=== PATIENT | male | born 1950 | race Caucasian/White ===

== ENCOUNTER 2018-12-15 17:19 | Inpatient (IN) | payer OTHER ==
[~2018-12-15] VITALS: Ht 182.9 cm; Wt 99.3 kg
[~2018-12-15 17:19] MED LIST: NOHOMEMEDICATIONS; PERCOCET 5-3251 EACH PO
[2018-12-15 17:21] VITALS: BP 168/96
[2018-12-15] MEDS ORDERED: PREDNISONE 10 M10 MG PO (17:25)
[2018-12-15] MEDS ORDERED: AMOXICILLIN 50500 MG PO (17:25)
[2018-12-15] MEDS ORDERED: BENICAR20 MG PO (17:25)
[2018-12-15] MEDS ORDERED: PREDNISONE 20 M20 MG PO (17:26)
[2018-12-15 18:07] LABS: HEMATOCRIT 45.8 % (42.0-52.0); HEMOGLOBIN 15.3 gm/dL (14.0-18.0); MCH 30.1 pg (26.0-34.0); MCHC 33.4 g/dL (28.0-37.0); MCV 90.1 fL (80.0-100.0); MPV 9.4 fl. (7.2-11.1); NUCLEATED RBCS 0 /100WBC; PLATELET COUNT* 167 thou/uL (150-400); RBC 5.08 mil/uL (4.50-6.00); WBC 9.5 thou/uL (4.0-11.0)
[2018-12-15 18:15] LABS: CALCIUM 9.1 mg/dL (8.5-10.1); CREATININE 1.2 mg/dL (0.6-1.3); POTASSIUM 3.9 mmol/L (3.5-5.1)
[2018-12-15 18:27] LABS: ALBUMIN 3.2 g/dL (3.4-5.0); CK-MB MASS 1.6 ng/mL (<0.5-3.6); TOTAL BILIRUBIN 0.5 mg/dL (<0.1-1.0); TOTAL PROTEIN 6.9 g/dL (6.4-8.2); TROPONIN-I LEVEL 0.09 ng/mL (<0.06)
[2018-12-15 18:41] LABS: ABSOLUTE EOSINOPHILS 0.1 thou/uL (0.0-0.7); ABSOLUTE LYMPHOCYTES 1.9 thou/uL (0.8-5.3); ABSOLUTE MONOCYTES 0.3 thou/uL (0.0-1.2); ABSOLUTE NEUTROPHILS 7.2 thou/uL (1.6-8.1); PLATELET ESTIMATE ADEQUATE
[2018-12-15 18:42] LABS: APTT 23.8 Seconds (25.0-31.3); INR 1.1; PROTIME 10.8 Seconds (9.20-11.50)
--- NOTE | 2018-12-15 18:56 | NUR ---
THIS NURSE GAVE REPORT TO STEFFEN VELEZ. STEFFEN VELEZ TO ASSUME PT CARE AT THIS TIME.
[2018-12-15 20:14] VITALS: BP 139/81
[2018-12-15 21:00] VITALS: BP 149/85
[2018-12-15 23:51] VITALS: BP 144/84
[2018-12-16 04:00] VITALS: BP 143/64
[2018-12-16 05:16] LABS: ABSOLUTE EOSINOPHILS 0.2 thou/uL (0.0-0.7); ABSOLUTE LYMPHOCYTES 2.2 thou/uL (0.8-5.3); ABSOLUTE MONOCYTES 0.7 thou/uL (0.0-1.2); ABSOLUTE NEUTROPHILS 4.7 thou/uL (1.6-8.1); BASOPHILS 0.6 %; EOSINOPHILS 2.1 %; HEMATOCRIT 43.1 % (42.0-52.0); HEMOGLOBIN 14.4 gm/dL (14.0-18.0); LYMPHOCYTES 28.8 %; MCH 30.1 pg (26.0-34.0); MCHC 33.4 g/dL (28.0-37.0); MCV 90.3 fL (80.0-100.0); MONOCYTES 8.4 %; MPV 9.8 fl. (7.2-11.1); NUCLEATED RBCS 0 /100WBC; PLATELET COUNT* 157 thou/uL (150-400); POLYS 60.1 %; RBC 4.78 mil/uL (4.50-6.00); RDW-CV 14.1 % (10.5-14.5); WBC 7.8 thou/uL (4.0-11.0)
--- NOTE | 2018-12-16 05:29 | NUR ---
RECEIVED REPORT FROM PIE FILLERSTEFFEN VELEZ AT 1950. PT ARRIVED TO UNIT AT 1999 VIA CART. PT SB/SR ON GAS PIPE LAYER. PT C/O SOA WITH ACTIVITY. O2 SAT 94% ON RA. PT PLACED ON 2L NC FOR COMFORT. HOURLY ROUNDING COMPLETED. CALL LIGHT WITHIN REACH. NEGATIVE SEPSIS SCREENING THIS SHIFT.
[2018-12-16 05:31] LABS: ANION GAP 7 mmol/L (7-16); BUN 19 mg/dL (7-18); CALCIUM 8.3 mg/dL (8.5-10.1); CHLORIDE 107 mmol/L (98-107); CHOLESTEROL 188 mg/dL (<200); CO2 29 mmol/L (21-32); GLUCOSE 95 mg/dL (70-99); HDL CHOLESTEROL 58 mg/dL (>40); LDL CHOLESTEROL 121 mg/dL (<100); SODIUM 143 mmol/L (136-145); TC:HDL 3.2 Ratio (Not establshd); TRIGLYCERIDE 49 mg/dL (<150); TROPONIN-I LEVEL 0.09 ng/mL (<0.06); VLDL 10 mg/dL (<40)
[2018-12-16 05:41] LABS: SERUM ASSESSMENT CLEAR
[2018-12-16 08:00] VITALS: BP 148/86
--- NOTE | 2018-12-16 08:00 | NUR ---
ASSUMED PT CARE AT 0700 THIS SHIFT. PT NOTED TO BE RESTING IN BED A/OX4. PT SCEDULED FOR US OF BLE THIS SHIFT. PT VSS, ASSESSMENT COMPLETED ET DOCUMENTED IN CHART. PT IS SR ON CARD MONITOR. WILL COMPLETE HOURLY ROUNDS.
[2018-12-16 12:19] VITALS: BP 140/81
--- NOTE | 2018-12-16 12:21 | EKG ---
[place] [address] ELECTROCARDIOGRAM REPORT Name: MYLENE WILSON Room: [address] ADM IN .R.#: [id number] Admission: 12/15/18 Attend Phys: Sudheer Mukherjee MD Discharge: Date of : 52 Report #: [id number] THIS REPORT FOR: //name// [facility] ED Test Date: 2018-12-15 Test Time: 17:22:54 Pat Name: MYLENE WILSON Department: Room: [facility] Gender: M Hide Examiner: : 1950 Requested By: Clayton Connolly Order Number: [id number] MD: John Suarez Measurements Intervals [place] Rate: 101 P: 51 PA: 116 QRS: -38 QRSD: 96 T: 30 QT: 343 QTc: 445 Interpretive Statements Sinus tachycardia Left axis deviation RSR' in V1 or V2, right VCD or RVH No previous ECG available for comparison Electronically Signed On 12-16-2018 12:21:28 CDT by John Suarez [email or web address] <ELECTRONICALLY SIGNED> By: John Suarez MD, [facility] 12/16/18 1221 1722 172 John Suarez MD, [facility] /EPI
--- NOTE | 2018-12-16 12:33 | CON ---
[address] [address] CONSULTATION Name: MYLENE WILSON Room: [address] IN M.R.#: [id number] Admission: 12/15/18 Attend Phys: Sudheer Mukherjee MD Discharge: Date of : 52 Report #: [id number] THIS REPORT FOR: //name// CC: Courtney Lim DO Sudheer Mukherjee DATE OF SERVICE: 12/16/2018 HISTORY OF PRESENT ILLNESS: The patient is a 68-year-old white male who I was asked to see in the hospital today after he complained of being short of breath. The patient has an extensive and complicated past medical history. Unfortunately, not a lot of his old records are available. He does have a history of hypertension. About a year ago, he was complaining of palpitations. He apparently wore a Holter monitor. He was placed on Coreg, but developed bradycardia. He was taken off the Coreg and switched to Benicar. He was referred to a automatic buffer at [facility]. He apparently had a stress test. He then underwent a cardiac catheterization at [facility] about a year ago from the radial artery that apparently showed no significant coronary artery disease. He just went to see his automatic buffer a month ago, who is Dr. Livingston at [facility]. He was told to discontinue the hydrochlorothiazide because of labile blood pressure. He then notes that for the past couple weeks, he has had a cough and sinus congestion. He was placed on antibiotics and steroids. However, he continued to be short of breath and weak. Yesterday, he was at home when all of a sudden he felt his heart pounding. His brought him to the Emergency Room. He was admitted for further evaluation and treatment. He denied any edema or leg pain. He denied any syncope, history of heart murmur. He has had no significant chest pain or bleeding. PAST MEDICAL HISTORY: He has had cholecystectomy, tonsillectomy, sinus surgery, SEASONAL ALLERGIES, hypertension. No diabetes. No hyperlipidemia. MEDICATIONS: Include Benicar. He is currently on antibiotics and steroids. ALLERGIES: He has no known drug allergies. FAMILY HISTORY: His brother had atrial fibrillation. SOCIAL HISTORY: He is . He works as a landlord. No smoking. No alcohol abuse. REVIEW OF SYSTEMS: He has had no history of stroke. He has had SEASONAL ALLERGIES. He has had a kidney stone. No liver disease. No cancer. No psychiatric illnesses. No chronic skin condition. PHYSICAL EXAMINATION: [place] [address] CONSULTATION Name: MYLENE WILSON Room: [address]#: [id number] Admission: 12/15/18 Attend Phys: Sudheer Mukherjee MD Discharge: Date of : 52 Report #: [id number] GENERAL: Revealed a middle-aged male, lying in bed. He appeared in no distress. VITAL SIGNS: Blood pressure 140/80, pulse 60. He is afebrile. HEENT: He is anicteric. Conjunctivae pink. Mucous membranes moist. NECK: Veins nondistended. No carotid bruits. Neck supple. CHEST: Clear to auscultation. HEART: Regular rate and rhythm. ABDOMEN: Soft. EXTREMITIES: Had no edema. Posterior tib pulse 2+ bilaterally. SKIN: Warm, dry. NEUROLOGIC: Nonfocal. LYMPH: No adenopathy. MUSCULOSKELETAL: No joint effusion. His ECG showed a sinus rhythm with an incomplete right bundle-branch block. His workup yesterday in the Emergency Room: He had a portable chest x-ray that showed normal heart size and clear lung carney. He had a CT scan of the chest performed yesterday that showed bilateral pulmonary emboli involving the right upper lobe, bilateral lower lobes, lingula and right middle lobe. Normal heart size. No pericardial effusion. LABORATORY WORK: Sodium 143, creatinine 1.0. His troponin is 0.12. Cholesterol 188, triglyceride 49, HDL 58, LDL 121. TSH 3.4. White blood cell count 7.8, hemoglobin 14.4. IMPRESSION AND RECOMMENDATIONS: 1. Bilateral pulmonary emboli. No evidence of right heart failure. I would recommend anticoagulation. Recommend hypercoagulable workup. 2. Hypertension. The patient has been on an ARB. 3. Borderline troponin. Apparently, a heart catheterization a year ago showed no significant coronary artery disease. Recommend no further cardiac evaluation at this time. 4. Recent upper respiratory illness. The patient was treated with steroids and antibiotics. 5. History of a kidney stone. 6. History of palpitations. Currently in sinus rhythm. <ELECTRONICALLY SIGNED> By: John Suarez MD, [facility] 12/16/18 1233 0822 [id number] Suarez MD, [facility] /nt
[2018-12-16 15:18] LABS: URINE BILIRUBIN NEGATIVE (Negative); URINE BLOOD NEGATIVE (Negative); URINE CLARITY CLEAR; URINE COLOR YELLOW; URINE GLUCOSE-RANDOM NEGATIVE (Negative); URINE KETONES NEGATIVE (Negative); URINE LEUKOCYTES-REFLEX NEGATIVE (Negative); URINE NITRITE-REFLEX NEGATIVE (Negative); URINE PROTEIN NEGATIVE (Negative); URINE UROBILINOGEN 0.2 E.U./dl (0.2-1.0)
[2018-12-16 15:25] LABS: AMP/METHAMP Negative (Negative); BARBITURATES Negative (Negative); BENZODIAZEPINES Negative (Negative); COCAINE Negative (Negative); METHADONE Negative (Negative); OPIATES Negative (Negative); PCP Negative (Negative); THC Negative (Negative)
[2018-12-16 16:00] VITALS: BP 130/75
--- NOTE | 2018-12-16 18:22 | NUR ---
PT CONT SR ON CARD MONITOR THIS SHIFT. US OF BLE RESULTED IN R EXT HAVING A THROMBI IN POPLITEAL AND PERONEAL VEINS. PT IS COOPERATIVE WITH NURSING CARE. FAMILY VERY SUPPORTIVE IN PT'S HEALTH PLANS. HOURLY ROUNDS COMPLETED ET DOCUMETNED IN CHART.
[2018-12-16 19:15] VITALS: BP 144/121
[2018-12-16 21:10] VITALS: BP 149/87
[2018-12-17] VITALS: BP 144/90
[2018-12-17 02:05] LABS: GLYCOHEMOGLOBIN (HGB A1C) 5.8 % (4.8-5.6)
--- NOTE | 2018-12-17 06:02 | NUR ---
ASSUMED PT CARE AT 1905. PT ANXIOUS THIS SHIFT R/T ADMITTING DIAGNOSES. PT REQUIRING REASSURANCE AND EDUCATION. PT VOICED UNDESTANDING, BUT VOICED CONCERNS THAT WOULD LIKE TO ADDRESS WITH PHYSICIAN IN AM. PT DENIES PAIN, DENIES SOA THIS SHIFT. HOURLY ROUNDING COMPLETED. SR/SB THIS SHIFT.NEGATIVE SEPSIS SCREENING. CALL LIGHT WITHIN REACH.
[2018-12-17 06:30] VITALS: BP 138/90
--- NOTE | 2018-12-17 06:47 | NUR ---
PT ANXIOUS THIS AM, C/O CHEST TIGHTNESS. DENIES PAIN.
[2018-12-17] MEDS ORDERED: COZAAR 50 MG TA50 M1 PO (13:06)
[2018-12-17] MEDS ORDERED: ELIQUIS5 MG PO (13:06)
[2018-12-17] MEDS ORDERED: ATORVASTATIN CA20 MG PO (13:06)
--- NOTE | 2018-12-17 14:18 | NUR ---
Pt is A&O. Resides at home with his . Independent. No DME. No hx of HH or SNF. Pt discharging home today. Aubrie cost checked, it will be $47/month. 30 day free card given.
--- NOTE | 2018-12-17 16:12 | 2DMMODE ---
[place] [address] 2 D/M-MODE ECHOCARDIOGRAM Name: MYLENE WILSON Room: [address] IN .R.#: [id number] Admission: 12/15/18 Attend Phys: Sudheer Mukherjee MD Discharge: Date of : 52 Date of Service: 12/17/18 1612 Report #: [id number] THIS REPORT FOR: //name// APPROVED REPORT Study performed: 12/17/2018 10:09:02 EXAM: Comprehensive 2D, Doppler, and color-flow Echocardiogram Patient Location: Bedside BSA: 2.21 HR: 62 bpm BP: 138/90 mmHg Other Information Study Quality: Good Indications Dyspnea Chest Pain 2D Dimensions IVSd: 15.11 (7-11mm) LVOT Diam: 17.02 (18-24mm) LVDd: 41.95 mm PWd: 11.39 (7-11mm) Ascending Ao: 34.32 (22-36mm) LVDs: 30.84 (25-40mm) Aortic Root: 27.41 mm Volumes Left Atrial Volume (Systole) LA ESV Index: 23.10 mL/m2 Aortic Valve AoV Peak Ryan.: 1.93 m/s AO Peak Gr.: 14.82 mmHg LVOT Max P.17 mmHg AO Mean Gr.: 8.35 mmHg LVOT Mean P.15 mmHg LVOT Max V: 1.24 m/s AO V2 VTI: 28.27 cm LVOT Mean V: 0.82 m/s VIN (VTI): 1.85 cm2 LVOT V1 VTI: 23.00 cm Mitral Valve E/A Ratio: 0.97 MV Decel. Time: 182.33 ms MV E Max Ryan.: 0.73 m/s MV PHT: 52.88 [place] [address] 2 D/M-MODE ECHOCARDIOGRAM Name: MYLENE WILSON Room: [address] IN [facility]#: [id number] Admission: 12/15/18 Attend Phys: Sudheer Mukherjee MD Discharge: Date of : 52 Date of Service: 12/17/18 1612 Report #: [id number] MVA (PHT): 4.16 cm2 TDI E/Lateral E': 7.30 E/Medial E': 8.11 Medial E' Ryan.: 0.09 m/s Lateral E' Ryan.: 0.10 m/s Pulmonary Valve PV Peak Ryan.: 0.88 m/s PV Peak Gr.: 3.11 mmHg Tricuspid Valve RAP Estimate: 15.00 mmHg TR Peak Gr.: 48.88 mmHg RVSP: 63.88 mmHg PA Pressure: 63.88 mmHg Left Ventricle The left ventricle is normal size. There is normal LV segmental wall motion. Borderline concentric left ventricular hypertrophy. Left ventricular systolic function is normal. The left ventricular ejection fraction is within the normal range. LVEF is 60-65%. Right Ventricle The right ventricle is normal size. The right ventricular systolic function is normal. Atria The left atrium size is normal. The right atrium size is normal. Aortic Valve Mild aortic valve sclerosis. No aortic regurgitation is present. There is no aortic valvular stenosis. Mitral Valve The mitral valve is normal in structure. Trace mitral regurgitation. No evidence of mitral valve stenosis. Tricuspid Valve The tricuspid valve is normal in structure. Trace tricuspid regurgitation. Pulmonic Valve The pulmonary valve is normal in structure. There is no pulmonic valvular regurgitation[place] [address] 2 D/M-MODE ECHOCARDIOGRAM Name: MYLENE WILSON Room: [address]#: [id number] Admission: 12/15/18 Attend Phys: Sudheer Mukherjee MD Discharge: Date of : 52 Date of Service: 12/17/18 1612 Report #: [id number] The aortic root is normal in size. IVC is normal in size and collapses >50% with inspiration. Pericardium There is no pericardial effusion. <Conclusion> The left ventricle is normal size. Borderline concentric left ventricular hypertrophy. Left ventricular systolic function is normal. The left ventricular ejection fraction is within the normal range. LVEF is 60-65%. The right ventricle is normal size. The left atrium size is normal. Mild aortic valve sclerosis. No aortic regurgitation is present. There is no aortic valvular stenosis. The mitral valve is normal in structure. Trace mitral regurgitation. The tricuspid valve is normal in structure. IVC is normal in size and collapses >50% with inspiration. There is no pericardial effusion. There is normal LV segmental wall motion. <ELECTRONICALLY SIGNED> By: Bernard Parish MD, FACC 12/17/18 161 161 11 Bernard Parish MD, FACC /INF
[2018-12-17 17:57] VITALS: BP 138/90
--- NOTE | 2018-12-17 18:36 | NUR ---
ASSUMED PT CARE AT 0700, PT A&O X4, VSS, RA, DENIES ANY SOA OR CHEST PAIN, PT REMAINS MED SURG STATUS. PT DISCHARGED AT APPROX 1835, EDUCATED ON ALL DISCHARGE INSTRUCTIONS INCLUDING FOLLOW UP APPTS AND MEDICATIONS. HOURLY ROUNDING COMPLETED, IV REMOVED.
== END 2018-12-17 18:44 | disposition home or self-care (01) | DRG 299 ==
LOC: M.ERS 17:19 → M.2W 18:35 → M.TBA-ER 18:35 → M.2W 20:38
PROVIDERS: Emergency Medicine Emergency Medical Services; ADMIT Family Medicine
DX: I82.431 Acute embolism and thrombosis of right popliteal vein (principal); I26.99 Other pulmonary embolism without acute cor pulmonale; I10 Essential (primary) hypertension; E78.00 Pure hypercholesterolemia, unspecified; K57.90 Diverticulosis of intestine, part unspecified, without perforation or abscess without bleeding; R79.89 Other specified abnormal findings of blood chemistry; Z87.442 Personal history of urinary calculi; Z90.49 Acquired absence of other specified parts of digestive tract; Z79.899 Other long term (current) drug therapy; Z88.8 Allergy status to other drugs, medicaments and biological substances; Z82.49 Family history of ischemic heart disease and other diseases of the circulatory system